=== PATIENT | female | born 1965 | race African-American/Black ===

== ENCOUNTER 2023-01-01 00:22 | Emergency (ER) | payer SELFPAY ==
[2023-01-01 00:32] VITALS: BP 154/99; PULSE 100; RESP 18; TEMP 98.6; BMI 34.3
[2023-01-01] MEDS ORDERED: IBUPROFEN 600 MG TABLET (FP) PO ONE ×2 (00:51→00:55)
== END 2023-01-01 01:04 | disposition home or self-care (01) ==
LOC: FER 00:22
DX: S00.83XA Contusion of other part of head, initial encounter (principal); S46.911A Strain of unspecified muscle, fascia and tendon at shoulder and upper arm level, right arm, initial encounter; M79.601 Pain in right arm; W01.0XXA Fall on same level from slipping, tripping and stumbling without subsequent striking against object, initial encounter; Y93.H2 Activity, gardening and landscaping; Y92.9 Unspecified place or not applicable
CPT/HCPCS: 99283-25